=== PATIENT | male | born 1985 | race Hispanic/Latino ===

== ENCOUNTER 2025-05-11 06:02 | Emergency (ER) | payer SELFPAY ==
[2025-05-11] MEDS ORDERED: MORPHINE 4 MG/ML SYR ONE (06:29)
[2025-05-11] MEDS ORDERED: KETOROLAC 30 MG/ML INJ ONE (06:29)
[2025-05-11] MEDS ORDERED: ASPIRIN 81 MG CHEWABLE TABLET ONE (06:29)
[2025-05-11] MEDS ORDERED: NA CHLORIDE 0.9% 1,000 ML ONE (06:29)
[2025-05-11] MEDS ORDERED: ONDANSETRON 4 MG/2 ML VIAL ONE (06:29)
[2025-05-11 06:39] LABS: Absolute Lymphocytes (CBC) 1.4 K/uL (0.7-4.9); Hematocrit 43.8 % (36.0-45.0); Hemoglobin 15.1 g/dL (12.0-15.0); MCH 30.3 pg (27.0-35.0); MCHC 34.4 g/dL (32.0-36.0); MCV 88.1 fL (80-100); MPV 7.6 fL (7.6-11.3); Nucleated RBC Absolute Count 0.0 (0-0); Nucleated Red Blood Cells % 0.1 % (0-0); RBC Red Blood Cell Count 4.98 M/uL (3.86-4.86); White Blood Count 18.00 thou/uL (4.3-10.9)
[2025-05-11 06:46] LABS: PT Prothrombin Time 14.5 SECONDS (10-13.0); Protime INR 1.29
[2025-05-11 06:59] LABS: ALT/SGPT 28 U/L (16-61); AST/SGOT 14 U/L (15-37); Albumin 3.7 g/dL (3.4-5.0); Albumin/Globulin Ratio 0.9 (1.1-1.8); Alkaline Phosphatase 68 U/L (45-117); Anion Gap 9.7 mEq/L (5.0-15.0); BUN Blood Urea Nitrogen 19 mg/dL (7-18); Bilirubin Indirect, Calculated 0.8 mg/dL (0.2-0.8); Globulin 4.0 g/dL (2.3-3.5); Glucose Level 99 mg/dL (74-106); Magnesium 2.2 mg/dL (1.6-2.4); NT PRO-BNP 35 pg/mL (<125); Potassium 3.7 mEq/L (3.5-5.1)
[2025-05-11 07:05] LABS: Troponin High Sensitivity < 3.0 pg/mL (<58.9)
--- NOTE | 2025-05-11 07:23 | RAD REPORT ---
Procedure: Chest Single View HISTORY: Chest. Pain COMPARISON: none FINDINGS: The lungs appear clear of acute infiltrate. No significant pleural effusion noted. The heart is normal size. IMPRESSION: No acute abnormality is displayed.
[2025-05-11] MEDS ORDERED: NA CHLORIDE 0.9% 250 ML ONE (07:28)
[2025-05-11] MEDS ORDERED: CEFTRIAXONE 1000 MG/VIAL ONE (07:28)
[2025-05-11] MEDS ORDERED: AZITHROMYCIN 500 MG INJ IVPB ONE (07:28)
[2025-05-11] MEDS ORDERED: ACETAMINOPHEN 325 MG TABLET ONE (07:41)
[2025-05-11 07:51] LABS: Influenza A Ag Negative; Influenza B Ag Negative; SARS-CoV-2 Antigen Rapid Res Negative (Negative)
--- NOTE | 2025-05-11 08:17 | ER ---
Nurse's Notes [facility] Name: Kris López Age: 39 yrs Sex: Male : 1985 Arrival Date: 05/11/2025 Time: 06:02 Bed 4 Private MD: Diagnosis: Acute upper respiratory infection, unspecified;Acute pharyngitis, unspecified;Fever, unspecified;Cough;Elevated white blood cell count Presentation: 05/11 06:20 Chief complaint: Patient states: i have fever body aches, headache and chills for three bm8 days but this morning my arms felt numb. 06:20 Coronavirus screen: Vaccine status: Patient reports receiving the 2nd dose of the covid bm8 vaccine. Ebola Screen: Patient negative for fever greater than or equal to 101.5 degrees Fahrenheit, and additional compatible Ebola Virus Disease symptoms Patient denies exposure to infectious person. Patient denies travel to an Ebola-affected area in the 21 days before illness onset. No symptoms or risks identified at this time. Resp Distress? No respiratory distress is noted at this time. Initial Sepsis Screen: Does the patient meet any 2 criteria? No. Patient's initial sepsis screen is negative. Does the patient have a suspected source of infection? No. Patient's initial sepsis screen is negative. Risk Assessment: Do you want to hurt yourself or someone else? Patient reports no desire to harm self or others. Onset of symptoms was May 08, 2025. 06:20 Method Of Arrival: Ambulatory bm8 06:20 Acuity: RILEY 3 bm8 Triage Assessment: 06:32 General: Appears in no apparent distress. comfortable, Behavior is calm, cooperative, bm8 appropriate for age. Pain: Complains of pain in chest Pain currently is 7 out of 10 on a pain scale. EENT: No deficits noted. No signs and/or symptoms were reported regarding the EENT system. Neuro: No deficits noted. Level of Consciousness is awake, alert, obeys commands, Oriented to person, place, time, situation, Appropriate for age Reports headache frontal area. Cardiovascular: Reports chest pain, Capillary refill < 3 seconds in bilateral fingers Patient's skin is warm and dry. Rhythm is sinus rhythm. Respiratory: Airway is patent Respiratory effort is even, unlabored, Respiratory pattern is regular, symmetrical, Breath sounds are clear bilaterally. GI: No signs and/or symptoms were reported involving the gastrointestinal system. : No signs and/or symptoms were reported regarding the genitourinary system. Derm: No signs and/or symptoms reported regarding the dermatologic system. Musculoskeletal: No signs and/or symptoms reported regarding the musculoskeletal system. Historical: - Allergies: 06:32 No Known Allergies; bm8 - Home Meds: 06:32 None [Active]; bm8 - PMHx: 06:32 None; bm8 - PSHx: 06:32 None; bm8 - Immunization history:: Adult Immunizations up to date, Client reports receiving the 2nd dose of the Covid vaccine. - Infectious Disease History:: Denies. - Family history:: not pertinent. - Social history:: Smoking status: Patient denies any tobacco usage or history of. Patient/guardian denies using alcohol, street drugs. Screenin:34 [facility] ED Fall Risk Assessment (Adult) History of falling in the last 3 months, bm8 including since admission No falls in past 3 months (0 pts) Confusion or Disorientation No (0 pts) Intoxicated or Sedated No (0 pts) Impaired Gait No (0 pts) Mobility Assist Device Used No (0 pt) Altered Elimination No (0 pt) Score/Fall Risk Level 0 - 2 = Low Risk Oriented to surroundings, Maintained a safe environment, Educated pt \T\ family on fall prevention, incl call for assistance when getting out of bed, Assessed \T\ reinforced patient's understanding of fall precautions, Hourly rounding (assess needs \T\ fall precautionary measures) done, Used ambulatory aids as needed (educated on \T\ assisted with), Used gait belt as appropriate. Abuse screen: Denies threats or abuse. Nutritional screening: No deficits noted. Tuberculosis screening: No symptoms or risk factors identified. Assessment: 06:34 Reassessment: see triage assessment. bm8 Vital Signs: 06:20 BP 131 / 59; Pulse 82; Resp 16; Temp 98.8; Pulse Ox 98% ; Weight 120.2 kg; Height 5 ft. bm8 11 in. ; Pain 7/10; 09:19 BP 109 / 57; Pulse 59; Resp 16; Pulse Ox 96% ; bp 06:20 Body Mass Index 36.96 (120.20 kg, 180.34 cm) bm8 06:20 Pain Scale: Adult bm8 [place] Score: 06:27 Eye Response: spontaneous(4). Motor Response: obeys commands(6). Verbal Response: sp4 oriented(5). Total: 15. 06:34 Eye Response: spontaneous(4). Motor Response: obeys commands(6). Verbal Response: bm8 oriented(5). Total: 15. ED Course: 06:10 Patient arrived in ED. gm2 06:20 Kemar Watts MD is Attending Physician. sp4 06:29 Sha Bray, RN is Primary Nurse. bm8 06:31 Triage completed. bm8 06:32 Arm band placed on right wrist. bm8 06:34 Patient has correct armband on for positive identification. Placed in gown. Bed in low bm8 position. Call light in reach. Side rails up X 1. Adult w/ patient. Client placed on continuous cardiac and pulse oximetry monitoring. NIBP monitoring applied. student assistant on. Pulse ox on. NIBP on. Door closed. Noise minimized. Pillow given. Verbal reassurance given. Head of bed elevated. 06:34 Inserted saline lock: 18 gauge in right wrist, using aseptic technique. Blood kt5 collected. Flushed with 10 mL NS. 06:34 No provider procedures requiring assistance completed. Initial lab(s) drawn, by ED bm8 staff, sent to lab. EKG done, by ED staff, reviewed by Kemar Watts MD COVID swab sent to lab. Flu and/or RSV swab sent to lab. Patient maintains SpO2 saturation greater than 95% on room air. 06:41 XRAY Chest (1 view) In Process Unspecified. EDMS 07:19 Attending Physician role handed off by Kemar Watts MD earnest 07:19 Gio Villalta MD is Attending Physician. earnest 09:19 IV discontinued, intact, bleeding controlled, No redness/swelling at site. Pressure bp dressing applied. Administered Medications: 06:36 Drug: morphine IVP or IV 4 mg IVP once over 4 mins Route: IVP; Infused Over: 4 mins; lg3 Site: right wrist; 09:18 Follow up: Response: No adverse reaction bp 06:36 Drug: Ketorolac IVP 30 mg IVP once Route: IVP; Site: right wrist; lg3 09:18 Follow up: Response: No adverse reaction bp 06:36 Drug: Ondansetron IVP 8 mg IVP once; over 2 minutes Route: IVP; Site: right wrist; lg3 09:18 Follow up: Response: No adverse reaction bp 06:37 Drug: Aspirin PO Chewable Tablet 324 mg PO once; 81 mg tablets x 4 Route: PO; lg3 09:19 Follow up: Response: No adverse reaction bp 06:37 Drug: NS 0.9% IV 1000 ml IV at 1000 ml once; to be given as a bolus over 60 minutes lg3 Route: IV; Rate: 1000 ml; Site: right wrist; 07:53 Drug: Rocephin - Rocephin (cefTRIAXone) IVPB 1 grams IVPB once over 30 mins; (mix in 50 bp mL NS) Route: IVPB; Infused Over: 30 mins; Site: right forearm; 07:53 Drug: Zithromax IVPB 500 mg IVPB once over 1 hrs; mix in 250 mL NS Route: IVPB; Infused bp Over: 1 hrs; Site: right forearm; 07:53 Drug: Acetaminophen PO 1000 mg PO once Route: PO; bp 09:18 Follow up: Response: No adverse reaction bp 08:45 Drug: Decadron - Dexamethasone IVP 10 mg IVP once Route: IVP; Site: right forearm; bp 09:18 Follow up: Response: No adverse reaction bp Medication: 06:34 VIS not applicable for this client. bm8 Outcome: 08:16 Discharge ordered by . earnest 09:19 Discharged to home ambulatory, with family, bp 09:19 Condition: stable 09:19 Discharge instructions given to patient, Instructed on discharge instructions, follow up and referral plans. medication usage, Demonstrated understanding of instructions, follow-up care, medications, Prescriptions given X 3, 09:20 Patient left the ED. bp Signatures: Dispatcher [employer] EDMS Gio Villalta MD MD cha Peltier, Brian, RN RN Mehnaz Moran RN RN lg3 Kemar Watts MD MD sp4 Joelle Flood 2 Sha Bray RN RN bm8 Amy Floyd RN RN kt5
--- NOTE | 2025-05-11 08:17 | EDPHYS ---
Physician Documentation [facility] Name: Kris López Age: 39 yrs Sex: Male : 1985 Arrival Date: 05/11/2025 Time: 06:02 Bed 4 Private MD: ED Physician Gio Villalta HPI: 05/11 06:20 This 39 yrs old Female presents to ER via Unassigned with complaints of Cough, sp4 Congestion, Fever, Sore Throat, CHILLS, General Weakness. 06:27 39-year-old male with prior history of coronavirus presents with 3 days of fever sp4 chills, body aches, chest pain, chest pressure, sore throat, headache, and feeling unwell overall.. Historical: - Allergies: 06:32 No Known Allergies; bm8 - Home Meds: 06:32 None [Active]; bm8 - PMHx: 06:32 None; bm8 - PSHx: 06:32 None; bm8 - Immunization history:: Adult Immunizations up to date, Client reports receiving the 2nd dose of the Covid vaccine. - Infectious Disease History:: Denies. - Family history:: not pertinent. - Social history:: Smoking status: Patient denies any tobacco usage or history of. Patient/guardian denies using alcohol, street drugs. ROS: 06:27 Constitutional: Positive fever, positive chills, positive sore throat, positive cough, sp4 positive congestion, positive generalized weakness, positive chest pressure 06:27 All other systems are negative, Exam: 06:27 Constitutional: This is a well developed, well nourished patient who is awake, alert, sp4 and in no acute distress. Head/Face: Normocephalic, atraumatic. Eyes: Pupils equal round and reactive to light, extra-ocular motions intact. Lids and lashes normal. Conjunctiva and sclera are not injected. Cornea within normal limits. Periorbital areas with no swelling, redness, or edema. ENT: Nares patent. No nasal discharge, no septal abnormalities noted. Tympanic membranes are normal and external auditory canals are clear. Oropharynx with no redness, swelling, or masses, exudates, or evidence of obstruction, uvula midline. Mucous membranes moist. Neck: Trachea midline, no thyromegaly or masses palpated, and no cervical lymphadenopathy. Supple, full range of motion without nuchal rigidity, or vertebral point tenderness. Chest/axilla: Normal chest wall appearance and motion. Nontender with no deformity. No lesions are appreciated. Cardiovascular: Regular rate and rhythm with a normal S1 and S2. No gallops, murmurs, or rubs. No pulse deficits. Respiratory: Lungs have equal breath sounds bilaterally, clear to auscultation and percussion. No rales, rhonchi or wheezes noted. No increased work of breathing, no retractions or nasal flaring. Abdomen/GI: Soft, with normal bowel sounds. No distension or tympany. No guarding or rebound. No evidence of tenderness throughout. Back: No spinal tenderness. No costovertebral tenderness. Skin: Warm, dry with normal turgor. Normal color with no rashes, no lesions, and no evidence of cellulitis. MS/ Extremity: Pulses equal, no cyanosis. Neurovascular intact. Full, normal range of motion. Neuro: Awake and alert, GCS 15, oriented to person, place, time, and situation. Cranial nerves II-XII grossly intact. Motor strength 5/5 in all extremities. Sensory grossly intact. Psych: Awake, alert, with orientation to person, place and time. Behavior, mood, and affect are within normal limits 06:27 ECG was reviewed by the Attending Physician. EKG at 0 626 normal sinus rhythm rate 76 otherwise normal. Vital Signs: 06:20 BP 131 / 59; Pulse 82; Resp 16; Temp 98.8; Pulse Ox 98% ; Weight 120.2 kg; Height 5 ft. bm8 11 in. ; Pain 7/10; 09:19 BP 109 / 57; Pulse 59; Resp 16; Pulse Ox 96% ; bp 06:20 Body Mass Index 36.96 (120.20 kg, 180.34 cm) bm8 06:20 Pain Scale: Adult bm8 [place] Coma Score: 06:27 Eye Response: spontaneous(4). Motor Response: obeys commands(6). Verbal Response: sp4 oriented(5). Total: 15. 06:34 Eye Response: spontaneous(4). Motor Response: obeys commands(6). Verbal Response: bm8 oriented(5). Total: 15. MDM: 06:25 Medical Screening Exam initiated sp4 06:32 Differential Diagnosis: Obstructed Airway Bronchitis Influenza Upper Respiratory sp4 Infection Sinusitis Pharyngitis Otitis Media Allergic Rhinitis. Data reviewed: vital signs, nurses notes, lab test result(s), EKG, radiologic studies, plain films. Consideration of Admission/Observation Escalation of care including admission/observation considered. 07:18 Transition of care: After a detail discussion of the patient's case, care is sp4 transferred to Gio Villalta MD. 07:19 Medical Screening Exam initiated [facility] 05/11 06:24 Order name: COVID-19 Ag + Flu A+B Ag; Complete Time: 08:16 sp4 05/11 06:24 Order name: Basic Metabolic Panel; Complete Time: 07:06 4 05/11 06:24 Order name: CBC with Diff; Complete Time: 06:45 [facility] 05/11 06:24 Order name: LFT's; Complete Time: 07:06 4 05/11 06:24 Order name: Magnesium; Complete Time: 07:06 4 05/11 06:24 Order name: NT PRO-BNP; Complete Time: 07:06 [facility] 05/11 06:24 Order name: PT-INR; Complete Time: 07:05 4 05/11 06:24 Order name: Troponin HS; Complete Time: 07:06 4 05/11 06:25 Order name: CK; Complete Time: 07:06 4 05/11 07:06 Order name: Blood Culture Adult (2) [facility] 05/11 07:45 Order name: Group A Streptococcus Rapid [facility] 05/11 08:19 Order name: Throat Culture [facility] 05/11 06:24 Order name: XRAY Chest (1 view); Complete Time: 07:40 [facility] 05/11 06:24 Order name: Cardiac monitoring; Complete Time: 06:37 4 05/11 06:24 Order name: EKG - Nurse/Tech; Complete Time: 06:37 sp4 05/11 06:24 Order name: IV Saline Lock; Complete Time: 06:37 4 05/11 06:24 Order name: Labs collected and sent; Complete Time: 06:37 sp4 05/11 06:24 Order name: O2 Per Protocol; Complete Time: 06:37 sp4 05/11 06:24 Order name: O2 Sat Monitoring; Complete Time: 06:37 sp4 EC:26 Rate is 76 beats/min. Rhythm is regular, Normal Sinus Rhythm. QRS [place] is Normal. CA sp4 interval is normal. QRS interval is normal. QT interval is normal. No Q waves. T waves are Normal. No ST changes noted. Clinical impression: No evidence of ischemia. Interpreted by me. Reviewed by me. Administered Medications: 06:36 Drug: morphine IVP or IV 4 mg IVP once over 4 mins Route: IVP; Infused Over: 4 mins; lg3 Site: right wrist; 09:18 Follow up: Response: No adverse reaction bp 06:36 Drug: Ketorolac IVP 30 mg IVP once Route: IVP; Site: right wrist; lg3 09:18 Follow up: Response: No adverse reaction bp 06:36 Drug: Ondansetron IVP 8 mg IVP once; over 2 minutes Route: IVP; Site: right wrist; lg3 09:18 Follow up: Response: No adverse reaction bp 06:37 Drug: Aspirin PO Chewable Tablet 324 mg PO once; 81 mg tablets x 4 Route: PO; lg3 09:19 Follow up: Response: No adverse reaction bp 06:37 Drug: NS 0.9% IV 1000 ml IV at 1000 ml once; to be given as a bolus over 60 minutes lg3 Route: IV; Rate: 1000 ml; Site: right wrist; 07:53 Drug: Rocephin - Rocephin (cefTRIAXone) IVPB 1 grams IVPB once over 30 mins; (mix in 50 bp mL NS) Route: IVPB; Infused Over: 30 mins; Site: right forearm; 07:53 Drug: Zithromax IVPB 500 mg IVPB once over 1 hrs; mix in 250 mL NS Route: IVPB; Infused bp Over: 1 hrs; Site: right forearm; 07:53 Drug: Acetaminophen PO 1000 mg PO once Route: PO; bp 09:18 Follow up: Response: No adverse reaction bp 08:45 Drug: Decadron - Dexamethasone IVP 10 mg IVP once Route: IVP; Site: right forearm; bp 09:18 Follow up: Response: No adverse reaction bp Disposition Summary: 05/11/25 08:16 Discharge Ordered Notes: Location: Home earnest Problem: new earnest Symptoms: have improved earnest Condition: Stable earnest Diagnosis - Acute upper respiratory infection, unspecified earnest - Acute pharyngitis, unspecified earnest - Fever, unspecified earnest - Cough earnest - Elevated white blood cell count earnest Followup: earnest - With: Private Physician - When: 2 - 3 days - Reason: Recheck today's complaints, Continuance of care, Re-evaluation by your physician Discharge Instructions: - Discharge Summary Sheet earnest - Fever, Adult earnest - Pharyngitis earnest - Sore Throat earnest - Upper Respiratory Infection, Adult, [id number] earnest - Pharyngitis, [id number] earnest - Cough, Adult earnest - Fever, Adult, [id number] [facility] Forms: - Medication Reconciliation Form earnest - Antibiotic Education earnest - Prescription Opioid Use earnest - Patient Portal Instructions [facility] - Leadership Thank You Letter [facility] - Work release form ss Prescriptions: - cefdinir 300 mg Oral capsule - take 1 capsule ORAL route 2 times per day for 7 days; 14 capsule; Refills: 0, [facility] Product Selection Permitted - Tessalon Perles 100 mg Oral capsule - take 2 capsule ORAL route every 8 hours As needed; 30 capsule; Refills: 0, [facility] Product Selection Permitted - Zithromax 500 mg Oral Tablet - take 1 tablet ORAL route once daily for 5 days; 5 tablet; Refills: 0, Product [facility] Selection Permitted Signatures: Dispatcher [employer] EDMS Gio Villalta MD MD cha Peltier, Brian RN RN Mehnaz Moran RN RN lg3 Kemar Watts MD MD sp4 Sha Bray, RN RN bm8 Corrections: (The following items were deleted from the chart) 06:25 06:25 BASIC METABOLIC PANEL+C.LAB.BRZ ordered. EDMS EDMS 06:25 06:25 CBC+H.LAB.BRZ ordered. EDMS EDMS 06:25 06:25 HEPATIC FUNCTION+C.LAB.BRZ ordered. EDMS EDMS 06:25 06:25 MAGNESIUM+C.LAB.BRZ ordered. EDMS EDMS 06:25 06:25 PROBNP+C.LAB.BRZ ordered. EDMS EDMS 06:25 06:25 PROTIME (+INR)+COAG.LAB.BRZ ordered. EDMS EDMS 06:25 06:25 Troponin High Sensitivity+C.LAB.BRZ ordered. EDMS EDMS 06:25 06:25 Chest Single View+RAD.RAD.BRZ ordered. EDNH EDMS 07:45 07:45 Group A Streptococcus Rapid Sc+I.LAB.BRZ ordered. EDMS EDMS
[2025-05-11 09:52] VITALS: TEMP 98.8
[2025-05-11 09:53] VITALS: BP 109/57; O2SAT 96
== END 2025-05-11 09:20 | disposition home or self-care (01) ==
LOC: EDSEX 06:02 → ER 06:02
DX: J06.9 Acute upper respiratory infection, unspecified (principal); J02.9 Acute pharyngitis, unspecified; R50.9 Fever, unspecified; R05.9 Cough, unspecified; Z11.52 Encounter for screening for COVID-19
CPT/HCPCS: 36415; 71045; 80048; 80076; 82550; 83735; 83880; 84484; 85025; 85610; 87040; 87070; 87205; 87428; 93005; 99285; J0456; J0696; J1100; J2405; J7030; J7050